=== PATIENT | female | born 1960 | race African-American/Black ===

== ENCOUNTER 2019-04-21 07:32 | Emergency (ER) | payer MEDICAID ==
[~2019-04-21] VITALS: Ht 165.1 cm; Wt 82.0 kg
[2019-04-21 08:08] VITALS: BP 168/92
[2019-04-21] MEDS ORDERED: KETOROLAC 60MG/2ML VIAL IM ONE (08:15)
== END 2019-04-21 09:08 | disposition home or self-care (01) ==
LOC: ER 07:32
DX: M79.645 Pain in left finger(s) (principal); W22.8XXA Striking against or struck by other objects, initial encounter; Y93.89 Activity, other specified; Y92.013 Bedroom of single-family (private) house as the place of occurrence of the external cause
CPT/HCPCS: 73130; 96372; 99283; J1885; Z7610